=== PATIENT | female | born 1950 | race Caucasian/White ===

== ENCOUNTER → 2019-03-28 13:22 | Outpatient (CLI) | payer MEDICARE, SELFPAY ==
--- NOTE | 2019-03-28 | DI.US.S_ITS ---
PROCEDURE: US EXTREMELY NONVASC UPPER RT INDICATIONS: PAIN IN RIGHT ARM TECHNIQUE: Real-time scanning was performed of the right upper extremity, with image documentation. COMPARISON: None. FINDINGS: There was occlusive clot seen within the cephalic vein. There is also thrombus occluding one branch of the brachial vein. IMPRESSION: Right upper extremity deep venous thrombosis as above. Findings were provided to the patient's referring clinician Dr. Mercedez Lake at the time of the study, and subsequently transferred to the doctor's office. Dictated by: Barry Farah M.D. on 03/28/2019 at 17:28 Approved by: Barry Farah M.D. on 03/28/2019 at 17:30
[2019-03-28 14:44] LABS: BUN Creatinine Ratio 23.8 (6-22); Blood Urea Nitrogen 19 mg/dL (7-17); Calcium 10.5 mg/dL (8.4-10.2); Carbon Dioxide 26 mmol/L (22-32); Chloride 94 mmol/L (98-107); Estimated Glomerular Filt Rate > 60.0 mL/min (>60); Glucose 116 mg/dL (80-110); HEMOLYSIS < 15 (0-50); Potassium 4.9 mmol/L (3.4-5.1); Sodium 134 mmol/L (137-145)
== END ==
PROVIDERS: Family Provider Internal Medicine; PCP Internal Medicine; Visit Provider Internal Medicine
DX: M79.601 Pain in right arm (principal); I82.621 Acute embolism and thrombosis of deep veins of right upper extremity; I10 Essential (primary) hypertension
CPT/HCPCS: 36415; 76882; 80048

== ENCOUNTER → 2019-05-29 08:09 | Outpatient (CLI) | payer MEDICARE, SELFPAY ==
--- NOTE | 2019-05-29 | DI.MRI.S_ITS ---
PROCEDURE: MR FOOT LT WO/W CON INDICATIONS: Localized swelling, mass and lump left lump. 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 2 large cystic masses on toe with ventral ulceration. TECHNIQUE: Noncontrast coronal T1 spin echo and STIR, sagittal T1 spin echo with fat saturation and STIR, axial T1 spin echo and T2 fast spin echo with fat saturation. After the administration of contrast, axial/sagittal/coronal T1 spin echo with fat saturation through the left foot. COMPARISON: None. FINDINGS: Image quality: Excellent. Bones: Patient is status post prior bunionectomy and first metatarsal shaft osteotomy for hallux valgus correction surgery. There is no marrow edema. No acute fracture or dislocation. No cortical erosion or destruction is seen. 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 No abnormal intraosseous enhancement. Soft tissues: Moderate amount of fluid along the standing flexor tendon sheath of the right great toe is seen at the level of the metatarsal shaft and proximal phalangeal shaft. Suggestion of ulceration and cellulitis involving plantar aspect of forefoot at the level of second metatarsal head is seen. No discrete drainable subcutaneous soft tissue fluid collection. Lobulated fluid signal structures are seen over dorsal and lateral aspect of first proximal phalangeal head is seen and measures 0.9 x 1 x 0.9 cm in size, and show no contrast enhancement. There is also a fluid signal structure within soft tissue between first and second proximal phalangeal base and measures up to 2.1 x 1.6 x 1 cm in size with a few internal septation. No contrast enhancement is noted in this area. Findings likely represent ganglion cysts in these areas. No gross enhancing lesion is identified. No gross muscle signal abnormality. Extensor tendons are intact. Flexor tendons in second through fifth toes are intact. Plantar aponeurosis is intact. IMPRESSION: 1. Small ulceration involving plantar aspect of second metatarsal head/MTP joint with mild adjacent cellulitis. No discrete drainable abscess collection. 2. Prior bunionectomy and first metatarsal osteotomy with postsurgical changes. No marrow edema. No fracture or dislocation. No evidence of osteomyelitis. 3. Suggestion of 2 ganglion cysts within soft tissue along lateral aspect of first proximal phalangeal shaft and first MTP joint as above. No enhancing soft tissue mass. Dictated by: Jona Guevara M.D. on 05/29/2019 at 11:42 Approved by: Jona Guevara M.D. on 05/29/2019 at 11:52
[2019-05-29 08:24] LABS: RBC Urine None Seen (0-5/HPF)
[2019-05-29 09:20] LABS: Add Manual Diff / Slide Review NO; Basophils Absolute Auto 100 /uL (0-100); Basophils Percent Auto 1.8 % (0-2); Eosinophils Absolute Auto 100 /uL (0-450); Eosinophils Percent Auto 2.8 % (2-4); Hematocrit 44.3 % (36-46); Hemoglobin 15.5 g/dL (12.0-16.0); Lymphocytes Absolute Auto 800 /uL (1100-4500); Lymphocytes Percent Auto 20.6 % (25-40); Mean Corpuscular HGB Conc 35.1 % (30-36); Mean Corpuscular Hemoglobin 31.8 PG (26-34); Mean Corpuscular Volume 90.6 fL (80-100); Monocytes Absolute Auto 500 /uL (0-900); Monocytes Percent Auto 11.9 % (3-14); Neutrophils Absolute Auto 2600 /uL (1500-7000); Neutrophils Percent Auto 62.9 % (50-75); Platelet Count 329 X10^3/uL (150-400); Red Blood Cell Count 4.89 X10^6/uL (4.0-5.2); Red Cell Distribution Width 13.8 % (11.6-14.8); White Blood Cell Count 4.1 X10^3/uL (4.5-11.0)
[2019-05-29 10:08] LABS: Alanine Aminotransferase 15 IU/L (9-52); Albumin 4.6 g/dL (3.5-5.0); Albumin Globulin Ratio 1.2 (1.0-2.8); Alkaline Phosphatase 80 U/L (38-126); Appearance Urine UA CLEAR; Aspartate Aminotransferase 30 IU/L (14-36); BUN Creatinine Ratio 25.7 (6-22); Bilirubin Total 0.6 mg/dL (0.2-1.3); Bilirubin Urine UA NEGATIVE (NEGATIVE); Blood Urea Nitrogen 18 mg/dL (7-17); Calcium 9.3 mg/dL (8.4-10.2); Carbon Dioxide 29 mmol/L (22-32); Chloride 90 mmol/L (98-107); Cholesterol 250 mg/dL (140-199); Color Urine UA YELLOW; Estimated Glomerular Filt Rate > 60.0 mL/min (>60); Globulin 3.8 g/dL (1.7-4.1); Glucose 113 mg/dL (80-110); Glucose Urine UA NEGATIVE (Negative); HDL Cholesterol 109 mg/dL (40-60); HEMOLYSIS < 15 (0-50); Ketones Urine UA NEGATIVE (NEGATIVE); LDL Cholesterol Calculated 129 mg/dL (<100); Leukocyte Esterase Urine UA 1+ (NEGATIVE); Magnesium 1.6 mg/dL (1.6-2.3); Nitrite Urine UA NEGATIVE (Negative); Occult Blood Urine UA NEGATIVE (Negative); Protein Urine UA NEGATIVE (Negative); Sodium 133 mmol/L (137-145); Specific Gravity Urine UA <=1.005 (1.000-1.035); Total Protein 8.4 g/dL (6.3-8.2); Triglycerides 61 mg/dL (35-150); Urobilinogen Urine UA 0.2 E.U./dL (0.2)
[2019-05-29 10:17] LABS: Hemoglobin A1C% w Est Avg Glu 5.2 % (4.0-6.0); Vitamin D 25 Hydroxy (D3) 54.8 ng/mL (30.0-100.0)
[2019-05-29 10:24] LABS: Potassium 2.6 mmol/L (3.4-5.1)
[2019-05-29 10:37] LABS: Thyroid Stimulating Hormone 1.73 uIU/mL (0.47-4.68)
[2019-05-29 10:40] LABS: Bacteria Urine Moderate (10-30); Squamous Epithelial Cell Urine 5-10 /HPF (0-5/HPF); WBC Urine 1-5/HPF (0-5/HPF)
[2019-05-31 15:28] LABS: Ionized Calcium 4.8 mg/dL (4.8-5.6)
[2019-05-31 16:38] LABS: Parathyroid Hormone Int 41 pg/mL (14-64)
[2019-06-01 17:01] LABS: Renin Activity 3.63 ng/mL/h (0.25-5.82)
[2019-06-01 17:18] LABS: Metanephrine, Free 45 pg/mL (< OR = 57); Normetanephrine, Free 137 pg/mL (< OR = 148)
== END ==
PROVIDERS: Family Provider Internal Medicine; PCP Internal Medicine; Visit Provider Internal Medicine
DX: R22.42 Localized swelling, mass and lump, left lower limb (principal); L97.529 Non-pressure chronic ulcer of other part of left foot with unspecified severity; L03.116 Cellulitis of left lower limb; I10 Essential (primary) hypertension; E83.52 Hypercalcemia; R73.9 Hyperglycemia, unspecified; Z13.220 Encounter for screening for lipoid disorders
CPT/HCPCS: 36415; 73720; 80053; 80061; 81001; 82088; 82306; 82330; 83036; 83735; 83835; 83970; 84244; 84443; 85025

== ENCOUNTER → 2019-05-30 11:27 | Outpatient (ROUT) | payer MEDICARE, SELFPAY ==
[2019-05-30 11:40] LABS: BUN Creatinine Ratio 17.5 (6-22); Blood Urea Nitrogen 14 mg/dL (7-17); Calcium 9.8 mg/dL (8.4-10.2); Carbon Dioxide 29 mmol/L (22-32); Chloride 90 mmol/L (98-107); Estimated Glomerular Filt Rate > 60.0 mL/min (>60); Glucose 110 mg/dL (80-110); HEMOLYSIS < 15 (0-50); Sodium 134 mmol/L (137-145)
== END ==
PROVIDERS: Family Provider Internal Medicine; PCP Internal Medicine; Visit Provider Internal Medicine
DX: E87.6 Hypokalemia (principal)
CPT/HCPCS: 80048

== ENCOUNTER → 2019-08-15 09:39 | Outpatient (CLI) | payer MEDICARE, SELFPAY ==
--- NOTE | 2019-08-15 | DI.US.S_ITS ---
PROCEDURE: US PERIPH VENOUS UP EXTREM RT INDICATIONS: FOLLOW-UP DVT TECHNIQUE: Real-time imaging, as well as color and pulse Doppler interrogation, was performed of the right upper extremity deep veins from the inferior neck to the antecubital fossa. COMPARISON: None. FINDINGS: The internal jugular vein, visualized portions of the subclavian vein, axillary, and brachial veins are free of intraluminal thrombus. Where physically possible, the veins are normally compressible. Color and pulse Doppler demonstrate normal intraluminal flow, with expected phasicity and pulsatility. Additional scanning of the cephalic and basilic veins of the superficial system demonstrate normal compressibility, without thrombus. IMPRESSION: Resolved right upper extremity deep venous thrombosis. Dictated by: Jonathan MARTINEZ Interpreted: Sánchez Waldrop MD on 08/15/2019 at 13:15 Approved by: Sánchez Waldrop M.D. on 08/15/2019 at 16:08
[2019-08-15 10:10] LABS: Bacteria Urine None Seen; RBC Urine None Seen (0-5/HPF); WBC Urine None Seen (0-5/HPF)
[2019-08-15 10:42] LABS: Appearance Urine UA CLEAR; Bilirubin Urine UA NEGATIVE (NEGATIVE); Color Urine UA YELLOW; Glucose Urine UA NEGATIVE (Negative); Ketones Urine UA NEGATIVE (NEGATIVE); Leukocyte Esterase Urine UA NEGATIVE (NEGATIVE); Nitrite Urine UA NEGATIVE (Negative); Occult Blood Urine UA NEGATIVE (Negative); Protein Urine UA NEGATIVE (Negative); Specific Gravity Urine UA <=1.005 (1.000-1.035); Urobilinogen Urine UA 0.2 E.U./dL (0.2)
[2019-08-15 11:26] LABS: BUN Creatinine Ratio 28.8 (6-22); Blood Urea Nitrogen 23 mg/dL (7-17); Calcium 9.5 mg/dL (8.4-10.2); Carbon Dioxide 26 mmol/L (22-32); Chloride 99 mmol/L (98-107); Estimated Glomerular Filt Rate > 60.0 mL/min (>60); Glucose 117 mg/dL (80-110); HEMOLYSIS < 15 (0-50); Potassium 4.4 mmol/L (3.4-5.1); Sodium 134 mmol/L (137-145)
[2019-08-15 17:12] LABS: Culture Indicated Urine Cult Not Indicated
== END ==
PROVIDERS: PCP Internal Medicine; Visit Provider Internal Medicine
DX: M79.601 Pain in right arm (principal); I10 Essential (primary) hypertension; E87.6 Hypokalemia; Z86.718 Personal history of other venous thrombosis and embolism
CPT/HCPCS: 36415; 80048; 81001; 93971

== ENCOUNTER → 2019-10-31 19:37 | Outpatient (ROUT) | payer MEDICARE, SELFPAY ==
[2019-10-31 20:25] LABS: Blood Urea Nitrogen 32 mg/dL (7-17); Calcium 10.2 mg/dL (8.4-10.2); Carbon Dioxide 24 mmol/L (22-32); Chloride 101 mmol/L (98-107); Estimated Glomerular Filt Rate > 60.0 mL/min (>60); Glucose 95 mg/dL (80-110); HEMOLYSIS < 15 (0-50); Potassium 5.3 mmol/L (3.4-5.1); Sodium 139 mmol/L (137-145)
[2019-10-31 20:30] LABS: NT-proBNP (BNP-Adult 18+) 73 pg/mL (<125)
== END ==
PROVIDERS: PCP Internal Medicine; Visit Provider Internal Medicine
DX: E87.6 Hypokalemia (principal); I46.9 Cardiac arrest, cause unspecified
CPT/HCPCS: 80048; 83880